=== PATIENT | female | born 1950 | race Caucasian/White ===

== ENCOUNTER 2020-04-02 20:41 | Emergency (ER) | payer MEDICARE, OTHER ==
[~2020-04-02 20:41] MED LIST: BIOTIN10 MG PO; COQ-10100 MG PO; FISH OIL 1,0001 EACH PO; HYDRALAZINE HCL10 MG PO; HYDROCHLOROTHIA25 MG PO; LISINOPRIL20 MG PO; LORTAB 7.5-3251 EACH PO; MAGNESIUM400 MG PO; MIRALAX PACK 171 PKT GT; POTASSIUM ACETATE PO; VITAMIN D 11000 UNIT PO
[2020-04-02 22:08] LABS: RED BLOOD COUNT 5.34 M/UL (4.00-5.10); WHITE BLOOD COUNT 3.3 K/UL (4.5-11.0)
[2020-04-02 22:56] LABS: BUN/CREATININE RATIO 14 (0-10)
[2020-04-03] MEDS ORDERED: ASPIRIN CHEWABL81 MG PO (03:39)
[2020-04-03] MEDS ORDERED: DECADRON6 MG PO (03:39)
[2020-04-03] MEDS ORDERED: DOXYCYCLINE HY100 M2 PO (03:39)
== END 2020-04-03 05:00 | disposition home or self-care (01) ==
LOC: ER1 20:41
PROVIDERS: Emergency Medicine
DX: U07.1 COVID-19 (principal); I10 Essential (primary) hypertension
CPT/HCPCS: 36600; 71045; 80053; 82550; 82553; 82803; 83605; 83690; 83735; 83874; 83880; 84484; 85025; 93005; 96374; 99284; J2405; M0239; U0002

== ENCOUNTER → 2020-05-28 | Outpatient (CLI) | payer MEDICARE, OTHER ==
[~2020-05-28] MED LIST changes: +ASPIRIN CHEWABL81 MG PO; +DECADRON6 MG PO; +DOXYCYCLINE HY100 M2 PO
== END ==
LOC: KOH-I 10:31
DX: M25.511 Pain in right shoulder (principal); M19.011 Primary osteoarthritis, right shoulder
CPT/HCPCS: 73030; 73060

== ENCOUNTER 2021-02-07 21:28 | Emergency (ER) | payer MEDICARE ==
[2021-02-07 22:03] LABS: HEMOGLOBIN 15.6 gm/dl (12.3-15.3); RED BLOOD COUNT 5.29 M/UL (4.00-5.10); WHITE BLOOD COUNT 9.2 K/UL (4.5-11.0)
[2021-02-07 22:55] LABS: BUN/CREATININE RATIO 25 (0-10)
== END 2021-02-08 11:37 ==
LOC: ER1 21:28
PROVIDERS: Family Medicine
DX: K83.1 Obstruction of bile duct (principal); E80.6 Other disorders of bilirubin metabolism; I10 Essential (primary) hypertension; Z20.822 Contact with and (suspected) exposure to COVID-19; Z88.8 Allergy status to other drugs, medicaments and biological substances; Z79.899 Other long term (current) drug therapy
CPT/HCPCS: 71045; 76705; 80053; 81001; 82550; 82553; 83690; 83874; 84484; 85025; 85379; 93005; 96365; 96366; 96375; 99285; J2270; J2405; J2543; Q9967; U0002